=== PATIENT | male | born 1935 | race Caucasian/White ===

== ENCOUNTER 2016-11-08 07:26 | Day surgery (SDC) | payer MEDICARE ==
[~2016-11-08 07:26] MED LIST: ALEVE220 MG OR; ASPIRIN EC81 MG PO; BISACODYL5 MG PO; CIPRO500 MG OR; CIPROFLOXACN500 MG PO; COQ10300 MG PO; COZAAR100 MG PO; DILAUDID 2MG2 MG/TA1 PO; EXCEDRI1 OR; FUROSEMIDE20 MG PO; LEXAPRO20 MG PO; LISINOPRIL5 MG OR; LYRICA25 MG OR; MELATONIN10 MG PO; METOPROLOL50 MG OR; NAPROSYN500 MG OR; NORVASC10 MG OR; OXYCODO-APAP1 TA2 PO; PERCOCET 10/31 COMBO PO; PERCOCET 5/325M1 TAB OR; REGLAN10 MG OR; TAMSULOSIN0.4 MG PO; VICODIN1 TAB OR; VITAMIN D32000 UNI1 PO; XANAX0.5 MG OR
[2016-11-08 09:12] VITALS: BP 173/74
== END 2016-11-08 09:25 | disposition home or self-care (01) ==
LOC: ENDO 07:26 → ORM 08:30 → ENDO 09:00
PROVIDERS: ATTEND Internal Medicine Gastroenterology
PROC: 0DB48ZX Excision of Esophagogastric Junction, Via Natural or Artificial Opening Endoscopic, Diagnostic (ICD-10-PCS; principal; 2016-11-08)
PROC: 0DB78ZX Excision of Stomach, Pylorus, Via Natural or Artificial Opening Endoscopic, Diagnostic (ICD-10-PCS; 2016-11-08)
DX: R13.10 Dysphagia, unspecified (principal); R63.4 Abnormal weight loss; Q39.9 Congenital malformation of esophagus, unspecified; K29.50 Unspecified chronic gastritis without bleeding; K25.9 Gastric ulcer, unspecified as acute or chronic, without hemorrhage or perforation; K44.9 Diaphragmatic hernia without obstruction or gangrene; I10 Essential (primary) hypertension; E11.9 Type 2 diabetes mellitus without complications; Z85.46 Personal history of malignant neoplasm of prostate

== ENCOUNTER 2017-01-05 15:50 | Emergency (ER) | payer MEDICARE ==
[~2017-01-05] VITALS: Ht 182.9 cm; Wt 75.0 kg
[2017-01-05 18:00] VITALS: BP 149/74
== END 2017-01-05 18:00 | disposition home or self-care (01) ==
LOC: ED 15:50
DX: R13.10 Dysphagia, unspecified (principal); I10 Essential (primary) hypertension; E11.9 Type 2 diabetes mellitus without complications
CPT/HCPCS: J1610

== ENCOUNTER 2017-02-21 07:52 | Day surgery (SDC) | payer MEDICARE ==
[~2017-02-21] VITALS: Ht 180.3 cm; Wt 73.9 kg
[2017-02-21 09:59] VITALS: BP 150/69
== END 2017-02-21 09:45 | disposition home or self-care (01) ==
LOC: ENDO 07:52 → ORM 13:45 → ENDO 13:45
PROVIDERS: ATTEND Internal Medicine Gastroenterology
PROC: 0DB78ZX Excision of Stomach, Pylorus, Via Natural or Artificial Opening Endoscopic, Diagnostic (ICD-10-PCS; principal; 2017-02-21)
PROC: 0D758ZZ Dilation of Esophagus, Via Natural or Artificial Opening Endoscopic (ICD-10-PCS; 2017-02-21)
DX: K22.2 Esophageal obstruction (principal); K29.50 Unspecified chronic gastritis without bleeding; K25.9 Gastric ulcer, unspecified as acute or chronic, without hemorrhage or perforation; K44.9 Diaphragmatic hernia without obstruction or gangrene; Q40.8 Other specified congenital malformations of upper alimentary tract; Q39.8 Other congenital malformations of esophagus; K59.03 Drug induced constipation; T40.2X5A Adverse effect of other opioids, initial encounter; I10 Essential (primary) hypertension; E11.9 Type 2 diabetes mellitus without complications; R63.4 Abnormal weight loss; Z85.46 Personal history of malignant neoplasm of prostate; B96.81 Helicobacter pylori [H. pylori] as the cause of diseases classified elsewhere

== ENCOUNTER 2017-09-03 08:50 | Day surgery (SDC) | payer MEDICARE ==
[~2017-09-03 08:50] MED LIST changes: +OMEPRAZOLE20 M1 PO; +VITAMIN B12 IM; +VITAMIN D32000 UNIT PO
[2017-09-03 10:19] VITALS: BP 180/87
== END 2017-09-03 10:25 | disposition home or self-care (01) ==
LOC: ENDO 08:50 → ORM 11:45 → ENDO 11:45
PROVIDERS: ATTEND Surgery
PROC: 0DJD8ZZ Inspection of Lower Intestinal Tract, Via Natural or Artificial Opening Endoscopic (ICD-10-PCS; principal; 2017-09-03)
DX: K62.5 Hemorrhage of anus and rectum (principal); I10 Essential (primary) hypertension; F32.9 Major depressive disorder, single episode, unspecified